=== PATIENT | male | born 2000 | race Caucasian/White ===

== ENCOUNTER 2024-12-12 22:40 | Emergency (ER) | payer BC ==
[2024-12-12] MEDS: Sodium Chloride 0.9% 10 ML Syringe FLUSH PRN (23:16)
[2024-12-12 23:17] LABS: BASOPHILS ABSOLUTE AUTO 0.05 K/uL (0.00-0.10); BASOPHILS PERCENT AUTO 0.4 % (0.1-1.3); EOSINOPHILS ABSOLUTE AUTO 0.06 K/uL (0.00-0.40); EOSINOPHILS PERCENT AUTO 0.5 % (0.0-5.4); IMMATURE GRAN ABSOLUTE AUTO 0.08 K/uL (0.00-0.23); IMMATURE GRAN PERCENT AUTO 0.7 % (0.0-0.7); LYMPHOCYTES ABSOLUTE AUTO 3.12 K/uL (0.8-3.3); LYMPHOCYTES PERCENT AUTO 27.0 % (11.4-47.7); MONOCYTES ABSOLUTE AUTO 0.95 K/uL (0.20-0.90); MONOCYTES PERCENT AUTO 8.2 % (3.3-12.6); NEUTROPHILS ABSOLUTE AUTO 7.29 K/uL (1.0-7.6); NEUTROPHILS PERCENT AUTO 63.2 % (40.0-78.1); PLATELET COUNT,PLT 269 K/uL (130-375); RED BLOOD CELL COUNT 4.85 M/uL (4.14-5.76); WHITE BLOOD CELL COUNT,WBC 11.6 K/uL (3.2-11.0)
[2024-12-12] MEDS: LORazepam 2 MG/ML SDV IVPUSH ONE (23:19)
[2024-12-12 23:38] LABS: A/G RATIO 1.2 (1.2-2.2); ALANINE AMINOTRANSFERASE,ALT 75 U/L (12-78); ASPARTATE AMNIOTRANSFERASE,AST 30 U/L (15-37); BILIRUBIN TOTAL 0.3 mg/dL (0.2-1.0); BLOOD UREA NITROGEN,BUN 16 mg/dL (7-18); CARBON DIOXIDE,CO2 27 mmol/L (21-32); CHLORIDE,CL 106 mmol/L (100-108); CREATININE 0.9 mg/dL (0.8-1.3); EST CRCL DRUG DOSING (CG) 143.03 mL/min; ESTIMATED GFR 122 mL/min (>60); GLUCOSE RANDOM 127 mg/dL (74-106); POTASSIUM,K 3.8 mmol/L (3.6-5.2); PROTEIN TOTAL,TP 7.8 g/dL (6.4-8.2); SODIUM,NA 143 mmol/L (140-148)
[2024-12-12 23:49] LABS: TROPONIN I HIGH SENSITIVITY 5.6 pg/mL (<=60.3); TSH ULTRASENSITIVE 2.981 uIU/mL (0.358-3.740)
== END 2024-12-13 00:09 | disposition home or self-care (01) ==
LOC: JP.ED 22:40
DX: R00.2 Palpitations (principal)
CPT/HCPCS: 36415; 80053; 80307; 83735; 84443; 84484; 85025; 93005; 96374; 99285; J2060